=== PATIENT | male | born 1970 | race Caucasian/White ===

== ENCOUNTER → 2018-09-22 | Day surgery (SDC) | payer OTHER ==
[~2018-09-22] VITALS: Ht 167.6 cm; Wt 56.7 kg
[~2018-09-22] MED LIST: ASPIRIN81 M1 PO; CLARITIN10 MG PO; MEDROL DOSEPAK4 MG PO; SUNMARK OMEPRAZ20 M1 PO; VICODIN 500 MG-1 TAB PO; ZITHROMAX Z PA250 MG PO
--- NOTE | ~2018-09-22 | O ---
[place], [place] OPERATIVE NOTE NAME: CECY UNGER JR UNIT #: [id number] ROOM: DOCTOR: NU PEDERSEN MD BIRTHDATE: [birth year] DOS: GASTROENDOSCOPIC REPORT: HISTORY: This a 47-year-old patient who was presented with chief complaint of epigastric abdominal pain, dyspepsia, diarrhea, change in bowel habits, rectal bleed. The patient with aggressive alcohol and nicotine dependency, 6 pack beer daily and 2 packs of cigarette smoking daily. ALLERGIES: PENICILLIN AND ALEVE. FAMILY HISTORY: Colonic carcinoma in grandmother and cousins. PAST SURGICAL HISTORY: Left leg hernia repair. PAST MEDICAL HISTORY: Anxiety, depression. PROCEDURE: Today's procedure part of investigation is panendoscopy and colonoscopy. PREMEDICATION: Propofol. SCOPE: Olympus forward-viewing gastroscope Q10 video. REPORT: After putting the patient in left lateral position and application of lubricant to the scope, scope was introduced. Thereafter, under direct visualization, advanced through the length of esophagus without difficulty. Esophagus, cervical, thoracic distal carefully examining, hiatal hernia was noticed. Gastritis was seen. Duodenal bulb, second and third part within normal limit. Antrum was biopsied. Duodenal bulb, second and third part consistent with mild duodenitis. Antral biopsy obtained, 3 cm hiatal hernia was photographed. Air was suctioned out. The patient was extubated, tolerated the procedure well. IMPRESSION: Gastritis, hiatal hernia, duodenitis. PLAN AND DISCUSSION: I am going to keep this patient on Protonix 20 mg every day. The patient advised to abstain from chewing tobacco, alcohol consumption. I am going to keep him on antireflux with elevation of the head of the bed 6 inch all time. We are going to proceed with colonoscopy. HISTORY: The patient has presented with change in bowel habit, undergoing investigation. PROCEDURE: Today's procedure part of investigation is colonoscopy. PREMEDICATION: Propofol. SCOPE: Olympus forward-viewing colonoscope 10L video. [place], [place] OPERATIVE NOTE NAME: CECY UNGER JR UNIT #: [id number] ROOM: DOCTOR: NU PEDERSEN MD BIRTHDATE: [birth year] REPORT: After putting the patient in left lateral position and application of lubricant to the scope, the scope was introduced. Thereafter, under direct visualization, advanced through the length of colon without difficulty. Base of the cecum explored, appendiceal orifice identified, ileocecal valve was defined and photographed. Large volume liquid stool in the colon was noticed as much as possible suctioned out. The patient was extubated, tolerated the procedure well. IMPRESSION: Normal colonoscopic examination. Plan was advised to have high fiber fruit diet. ACTIVITY: Ad delmy to stop aggressive alcohol and nicotine consumption. Thank you very much indeed. NU PEDERSEN MD CM:OPRECORD:OPERATIVE NOTE [id number] NU PEDERSEN MD 09/22/18 1103 interface
[2018-09-22 09:15] VITALS: BP 149/94
[2018-09-22 10:43] VITALS: BP 100/69
[2018-09-22 10:55] VITALS: BP 127/81
[2018-09-22 11:18] VITALS: BP 121/79
== END | disposition home or self-care (01) ==
LOC: SDC 09-17 08:00
DX: K62.5 Hemorrhage of anus and rectum (principal); R19.7 Diarrhea, unspecified; K29.50 Unspecified chronic gastritis without bleeding; K29.80 Duodenitis without bleeding; K44.9 Diaphragmatic hernia without obstruction or gangrene; E78.5 Hyperlipidemia, unspecified; F17.210 Nicotine dependence, cigarettes, uncomplicated; F41.8 Other specified anxiety disorders; Z88.6 Allergy status to analgesic agent; Z88.0 Allergy status to penicillin; Z98.890 Other specified postprocedural states; Z80.0 Family history of malignant neoplasm of digestive organs

== ENCOUNTER → 2021-08-06 | Outpatient (CLI) | payer OTHER | END | disposition home or self-care (01) | LOC: RAD 11:12 | PROVIDERS: ATTEND Nurse Practitioner Family | DX: K62.5 Hemorrhage of anus and rectum (principal); F10.10 Alcohol abuse, uncomplicated; Z72.0 Tobacco use; Z80.0 Family history of malignant neoplasm of digestive organs ==

== ENCOUNTER → 2021-09-05 | Day surgery (SDC) | payer OTHER | END | disposition home or self-care (01) | LOC: SDC 09-02 08:00 | PROVIDERS: ATTEND Surgery | DX: Z01.818 Encounter for other preprocedural examination (principal); Z20.822 Contact with and (suspected) exposure to COVID-19 ==

== ENCOUNTER → 2021-09-23 | Day surgery (SDC) | payer OTHER ==
[~2021-09-23] VITALS: Ht 170.1 cm; Wt 56.7 kg
[2021-09-23 07:17] VITALS: BP 151/85
[2021-09-23 08:00] VITALS: BP 120/75
[2021-09-23 08:14] VITALS: BP 139/82
[2021-09-23 08:26] VITALS: BP 148/83
== END | disposition home or self-care (01) ==
LOC: SDC 09-09 12:30
PROVIDERS: ATTEND Surgery
DX: K62.5 Hemorrhage of anus and rectum (principal); K57.30 Diverticulosis of large intestine without perforation or abscess without bleeding; K64.8 Other hemorrhoids; K21.9 Gastro-esophageal reflux disease without esophagitis; F32.9 Major depressive disorder, single episode, unspecified; F41.9 Anxiety disorder, unspecified; F17.210 Nicotine dependence, cigarettes, uncomplicated; Z79.899 Other long term (current) drug therapy; Z20.822 Contact with and (suspected) exposure to COVID-19

== ENCOUNTER → 2021-11-07 | Outpatient (CLI) | payer OTHER | END | disposition home or self-care (01) | LOC: CT 01:42 | PROVIDERS: ATTEND Nurse Practitioner Family | DX: K02.9 Dental caries, unspecified (principal); F10.10 Alcohol abuse, uncomplicated; M27.2 Inflammatory conditions of jaws; K62.5 Hemorrhage of anus and rectum; R63.4 Abnormal weight loss; R91.8 Other nonspecific abnormal finding of lung field; Z80.0 Family history of malignant neoplasm of digestive organs ==

== ENCOUNTER → 2022-08-06 | Outpatient (CLI) | payer OTHER ==
[2022-08-06 18:08] LABS: BASO # 0.1 10*3/uL (0.0-0.1); BASO % 1.3 % (0.0-1.0); EOS # 0.2 10*3/uL (0.0-0.4); EOS % 3.3 % (1.0-4.0); HEMATOCRIT 42.2 % (42.0-52.0); LYMPH # 1.5 10*3/uL (1.3-4.4); LYMPH % 27.4 % (27.0-41.0); MEAN CELL VOLUME 91.1 fl (80.0-94.0); MEAN CORPUSCULAR HGB 31.1 pg (27.0-31.0); MEAN CORPUSCULAR HGB CONC 34.1 g/dl (33.0-37.0); MEAN PLATELET VOLUME 8.5 fl (9.6-12.3); MONO # 0.7 10*3/uL (0.1-1.0); MONO % 12.4 % (3.0-9.0); NEUT % 55.4 % (47.0-73.0); PLATELET COUNT AUTOMATED 284 10*3/uL (130-400); RED BLOOD COUNT 4.63 10*6/uL (4.50-5.90); RED CELL DISTRI WIDTH 14.3 % (0-14.5); WHITE BLOOD COUNT 5.4 10*3/uL (4.8-10.8)
[2022-08-06 18:28] LABS: ALKALINE PHOSPHATASE 75 U/L (45-117); BUN 8 mg/dl (7-24); CHLORIDE 104 mmol/L (98-107); CHOLESTEROL 191 mg/dL (<200); CREATININE 0.81 mg/dL (0.70-1.30); LDL CHOLESTEROL 58 mg/dL (9-159); POTASSIUM 4.1 mmol/L (3.5-5.1); SGOT/AST 29 IU/L (3-35); SGPT/ALT 21 U/L (12-78); SODIUM 132 mmol/L (136-145); TOTAL PROTEIN 7.5 gm/dL (6.4-8.2); TRIGLYCERIDES 70 mg/dl (<150)
== END | disposition home or self-care (01) ==
LOC: LAB 17:29
PROVIDERS: ATTEND Nurse Practitioner Family
DX: I10 Essential (primary) hypertension (principal); F10.10 Alcohol abuse, uncomplicated; Z72.0 Tobacco use

== ENCOUNTER → 2022-08-25 | Outpatient (CLI) | payer OTHER ==
[2022-08-25 12:22] LABS: BUN 5 mg/dl (7-24); CREATININE 0.66 mg/dL (0.70-1.30)
== END | disposition home or self-care (01) ==
LOC: LAB 11:43
PROVIDERS: Surgery Vascular Surgery; ATTEND Internal Medicine Endocrinology, Diabetes & Metabolism
DX: I71.40 Abdominal aortic aneurysm, without rupture, unspecified (principal)

== ENCOUNTER → 2022-08-26 | Outpatient (CLI) | payer OTHER | LOC: CT 01:50 | PROVIDERS: ATTEND Surgery Vascular Surgery | DX: I71.40 Abdominal aortic aneurysm, without rupture, unspecified (principal) ==

== ENCOUNTER → 2022-10-22 | Outpatient (CLI) | payer OTHER | END | disposition home or self-care (01) | LOC: CT 10:30 | PROVIDERS: ATTEND Internal Medicine Critical Care Medicine | DX: J43.9 Emphysema, unspecified (principal); J45.40 Moderate persistent asthma, uncomplicated; R91.1 Solitary pulmonary nodule; Z87.891 Personal history of nicotine dependence; Z68.1 Body mass index [BMI] 19.9 or less, adult ==

== ENCOUNTER → 2023-02-04 | Outpatient (CLI) | payer OTHER | END | disposition home or self-care (01) | LOC: CT 11:00 | PROVIDERS: ATTEND Internal Medicine Critical Care Medicine | DX: J43.8 Other emphysema (principal); J98.4 Other disorders of lung ==

== ENCOUNTER → 2023-03-18 | Outpatient (CLI) | payer OTHER ==
[2023-03-18 14:16] LABS: BASO # 0.1 10*3/uL (0.0-0.1); EOS # 0.2 10*3/uL (0.0-0.4); EOS % 3.8 % (1.0-4.0); HEMATOCRIT 45.8 % (42.0-52.0); LYMPH # 1.6 10*3/uL (1.3-4.4); LYMPH % 39.5 % (27.0-41.0); MEAN CELL VOLUME 90.7 fl (80.0-94.0); MEAN CORPUSCULAR HGB 32.1 pg (27.0-31.0); MEAN CORPUSCULAR HGB CONC 35.4 g/dl (33.0-37.0); MEAN PLATELET VOLUME 8.3 fl (9.6-12.3); MONO # 0.5 10*3/uL (0.1-1.0); MONO % 12.8 % (3.0-9.0); NEUT # 1.7 10*3/uL (2.3-7.9); NEUT % 41.6 % (47.0-73.0); PLATELET COUNT AUTOMATED 293 10*3/uL (130-400); RED BLOOD COUNT 5.05 10*6/uL (4.50-5.90); RED CELL DISTRI WIDTH 13.8 % (0-14.5)
[2023-03-18 14:42] LABS: ALKALINE PHOSPHATASE 70 U/L (46-116); CHLORIDE 101 mmol/L (98-107); CHOLESTEROL 193 mg/dL (<200); LDL CHOLESTEROL 69 mg/dL (9-159); POTASSIUM 3.8 mmol/L (3.4-5.1); SGPT/ALT 16 U/L (10-49); TOTAL PROTEIN 7.5 gm/dL (6.0-8.0); TRIGLYCERIDES 78 mg/dl (<150)
[2023-03-18 14:45] LABS: BUN < 5 mg/dl (9-23)
== END | disposition home or self-care (01) ==
LOC: LAB 14:02
PROVIDERS: ATTEND Nurse Practitioner Family
DX: I10 Essential (primary) hypertension (principal); F10.10 Alcohol abuse, uncomplicated; R79.89 Other specified abnormal findings of blood chemistry; D72.819 Decreased white blood cell count, unspecified; Z72.0 Tobacco use

== ENCOUNTER → 2023-04-28 | Outpatient (CLI) | payer OTHER ==
[2023-04-28 12:45] LABS: BASO # 0.1 10*3/uL (0.0-0.1); BASO % 1.5 % (0.0-1.0); EOS # 0.2 10*3/uL (0.0-0.4); EOS % 3.1 % (1.0-4.0); HEMATOCRIT 48.7 % (42.0-52.0); LYMPH # 1.2 10*3/uL (1.3-4.4); MEAN CELL VOLUME 91.5 fl (80.0-94.0); MEAN CORPUSCULAR HGB CONC 33.9 g/dl (33.0-37.0); MEAN PLATELET VOLUME 8.2 fl (9.6-12.3); MONO % 18.2 % (3.0-9.0); NEUT # 2.8 10*3/uL (2.3-7.9); PLATELET COUNT AUTOMATED 261 10*3/uL (130-400); RED BLOOD COUNT 5.32 10*6/uL (4.50-5.90); RED CELL DISTRI WIDTH 13.5 % (0-14.5); WHITE BLOOD COUNT 5.2 10*3/uL (4.8-10.8)
[2023-04-28 13:11] LABS: ALKALINE PHOSPHATASE 82 U/L (46-116); CHLORIDE 102 mmol/L (98-107); POTASSIUM 4.6 mmol/L (3.4-5.1); SGPT/ALT 18 U/L (10-49); TOTAL PROTEIN 7.7 gm/dL (6.0-8.0)
[2023-04-28 13:14] LABS: BUN < 5 mg/dl (9-23)
== END | disposition home or self-care (01) ==
LOC: LAB 12:29
PROVIDERS: ATTEND Nurse Practitioner Family
DX: L03.115 Cellulitis of right lower limb (principal); H92.03 Otalgia, bilateral; H61.23 Impacted cerumen, bilateral; R63.4 Abnormal weight loss

== ENCOUNTER → 2023-10-13 | Outpatient (CLI) | payer OTHER | END | disposition home or self-care (01) | LOC: CT 13:25 | PROVIDERS: ATTEND Specialist | DX: J34.2 Deviated nasal septum (principal); J32.9 Chronic sinusitis, unspecified; J31.2 Chronic pharyngitis; R51.9 Headache, unspecified ==

== ENCOUNTER → 2023-11-04 | Outpatient (CLI) | payer OTHER ==
[2023-11-04 17:16] LABS: BASO # 0.1 10*3/uL (0.0-0.1); BASO % 1.4 % (0.0-1.0); EOS # 0.4 10*3/uL (0.0-0.4); EOS % 4.8 % (1.0-4.0); HEMATOCRIT 45.7 % (42.0-52.0); LYMPH # 1.8 10*3/uL (1.3-4.4); LYMPH % 23.3 % (27.0-41.0); MEAN CELL VOLUME 91.2 fl (80.0-94.0); MEAN CORPUSCULAR HGB 29.7 pg (27.0-31.0); MEAN CORPUSCULAR HGB CONC 32.6 g/dl (33.0-37.0); MEAN PLATELET VOLUME 8.1 fl (9.6-12.3); MONO # 0.9 10*3/uL (0.1-1.0); NEUT # 4.4 10*3/uL (2.3-7.9); NEUT % 58.2 % (47.0-73.0); PLATELET COUNT AUTOMATED 341 10*3/uL (130-400); RED BLOOD COUNT 5.01 10*6/uL (4.50-5.90); RED CELL DISTRI WIDTH 13.2 % (0-14.5); WHITE BLOOD COUNT 7.6 10*3/uL (4.8-10.8)
[2023-11-04 17:45] LABS: ALKALINE PHOSPHATASE 89 U/L (46-116); BUN 10 mg/dl (9-23); CHLORIDE 103 mmol/L (98-107); CHOLESTEROL 181 mg/dL (<200); LDL CHOLESTEROL 99 mg/dL (9-159); POTASSIUM 3.9 mmol/L (3.4-5.1); SGPT/ALT 11 U/L (5-49); TOTAL PROTEIN 7.2 gm/dL (6.0-8.0); TRIGLYCERIDES 137 mg/dl (<150)
== END | disposition home or self-care (01) ==
LOC: LAB 16:54
PROVIDERS: ATTEND Nurse Practitioner Family
DX: R79.89 Other specified abnormal findings of blood chemistry (principal); I10 Essential (primary) hypertension; F10.10 Alcohol abuse, uncomplicated; Z72.0 Tobacco use

== ENCOUNTER 2023-12-16 11:14 | Emergency (ER) | payer OTHER ==
[~2023-12-16] VITALS: Ht 165.1 cm; Wt 53.5 kg
[2023-12-16] MEDS ORDERED: CEPHALEXIN500 M1 PO (13:26)
[2023-12-17] MEDS ORDERED: LISINOPRIL10 M1 PO (10:47)
[2023-12-17] MEDS ORDERED: WELLBUTRIN SR150 MG PO (10:48)
[2023-12-17] MEDS ORDERED: SYMB160 INH (10:49)
[2023-12-17] MEDS ORDERED: VENT7GM INH (10:49)
== END 2023-12-16 13:33 | disposition home or self-care (01) ==
LOC: ED 11:14
DX: S01.511A Laceration without foreign body of lip, initial encounter (principal); Z88.0 Allergy status to penicillin; Z88.6 Allergy status to analgesic agent; Z98.890 Other specified postprocedural states; Z87.891 Personal history of nicotine dependence; W22.8XXA Striking against or struck by other objects, initial encounter; Y93.89 Activity, other specified; Y92.89 Other specified places as the place of occurrence of the external cause; Y99.8 Other external cause status

== ENCOUNTER 2023-12-31 01:27 | Emergency (ER) | payer OTHER ==
[~2023-12-31] VITALS: Ht 162.5 cm; Wt 54.4 kg
[~2023-12-31 01:27] MED LIST changes: +CEPHALEXIN500 M1 PO; +LISINOPRIL10 M1 PO; +SYMB160 INH; +VENT7GM INH; +WELLBUTRIN SR150 MG PO
[2023-12-31 01:30] VITALS: BP 163/101
[2023-12-31] MEDS ORDERED: Albuterol Sulf/Ipratropium 3 ML VIAL NEB ONE ×2 (01:35→05:25)
[2023-12-31] MEDS ORDERED: methylPREDNISolone sod succ 125 MG VIAL IV ONE (01:35)
[2023-12-31 01:54] LABS: HEMATOCRIT 47.9 % (42.0-52.0); MEAN CELL VOLUME 84.9 fl (80.0-94.0); MEAN CORPUSCULAR HGB 27.7 pg (27.0-31.0); MEAN CORPUSCULAR HGB CONC 32.6 g/dl (33.0-37.0); PLATELET COUNT AUTOMATED 377 10*3/uL (130-400); RED BLOOD COUNT 5.64 10*6/uL (4.50-5.90); RED CELL DISTRI WIDTH 12.6 % (0-14.5); WHITE BLOOD COUNT 10.6 10*3/uL (4.8-10.8)
[2023-12-31 01:57] LABS: MANUAL DIFF REFLEX YES
[2023-12-31 02:11] LABS: ALKALINE PHOSPHATASE 119 U/L (46-116); CHLORIDE 83 mmol/L (98-107); POTASSIUM 4.4 mmol/L (3.4-5.1); SGPT/ALT 24 U/L (5-49); TOTAL PROTEIN 7.3 gm/dL (6.0-8.0)
[2023-12-31 02:17] LABS: BUN < 5 mg/dl (9-23)
[2023-12-31] MEDS ORDERED: SODIUM CHLORIDE 0.9% 1,000 ML IV ONE (02:25)
[2023-12-31 02:32] LABS: PLATELET SUFFICIENCY NORMAL (NORMAL); TOTAL CELLS COUNTED 100 #CELLS
[2023-12-31 02:37] VITALS: BP 184/101
[2023-12-31 03:14] VITALS: BP 185/104
[2023-12-31] MEDS ORDERED: TEMAZEPAM 15 MG CAP PO PRN (03:30)
[2023-12-31] MEDS ORDERED: Magnesium Hydroxide 30 ML UDC PO PRN (03:30)
[2023-12-31] MEDS ORDERED: ACETAMINOPHEN 650 MG SUPP R PRN (03:30)
[2023-12-31] MEDS ORDERED: BISACODYL 5 MG TAB PO PRN (03:30)
[2023-12-31] MEDS ORDERED: ACETAMINOPHEN 325 MG TAB PO PRN (03:30)
[2023-12-31 03:59] LABS: BILIRUBIN Negative (Negative); BLOOD Trace-Lysed (Negative); CLARITY Clear (Clear); COLOR Yellow (Yellow); GLUCOSE Negative (Negative); KETONE Negative (Negative); LEUKO ESTERASE Negative (Negative); NITRITE Negative (Negative); SPECIFIC GRAVITY <= 1.005 (1.001-1.030)
[2023-12-31 04:04] LABS: URINE AMPHETAMINES Negative (1000ng/ml); URINE BARBITURATES Negative (200ng/ml); URINE BENZODIAZEPINES Negative (200ng/ml); URINE CANNABINOIDS (THC) Negative (50ng/ml); URINE COCAINE Negative (300ng/ml); URINE METHADONE Negative (300ng/ml); URINE OPIATES Negative (300ng/ml); URINE PHENCYCLIDINE Negative (25ng/ml)
[2023-12-31 04:25] LABS: WBC 0-2 wbc/hpf (0-5)
[2023-12-31 04:37] VITALS: BP 148/106
[2023-12-31 06:55] VITALS: BP 171/102
[2023-12-31 07:15] VITALS: BP 170/100
[2023-12-31] MEDS ORDERED: Enoxaparin Sodium 40 MG/0.4 ML SYR SC SCH (10:00)
== END 2023-12-31 05:27 | disposition admitted as inpatient to this hospital (09) ==
LOC: ED 01:27 → EDHOLD 02:54 → ED 05:27
PROVIDERS: Internal Medicine; Student in an Organized Health Care Education/Training Program
DX: E87.1 Hypo-osmolality and hyponatremia (principal); J44.1 Chronic obstructive pulmonary disease with (acute) exacerbation; R74.01 Elevation of levels of liver transaminase levels; R63.4 Abnormal weight loss; Z88.0 Allergy status to penicillin; Z88.8 Allergy status to other drugs, medicaments and biological substances; Z79.2 Long term (current) use of antibiotics; Z79.899 Other long term (current) drug therapy; Z98.890 Other specified postprocedural states

== ENCOUNTER 2024-01-08 17:45 | Emergency (ER) | payer OTHER ==
[~2024-01-08] VITALS: Ht 167.6 cm; Wt 54.4 kg
[2024-01-08] MEDS ORDERED: SODIUM CHLORIDE 0.9% 1,000 ML IV ONE (17:55)
[2024-01-08] MEDS ORDERED: TRANEXAMIC ACID IN NACL,ISO-OS 100 ML IV ONE (18:00)
[2024-01-08 18:08] LABS: BASO # 0.1 10*3/uL (0.0-0.1); BASO % 0.5 % (0.0-1.0); EOS # 0.1 10*3/uL (0.0-0.4); EOS % 1.3 % (1.0-4.0); HEMATOCRIT 43.6 % (42.0-52.0); LYMPH # 0.8 10*3/uL (1.3-4.4); LYMPH % 8.7 % (27.0-41.0); MEAN CELL VOLUME 88.1 fl (80.0-94.0); MEAN CORPUSCULAR HGB 27.7 pg (27.0-31.0); MEAN CORPUSCULAR HGB CONC 31.4 g/dl (33.0-37.0); MEAN PLATELET VOLUME 8.7 fl (9.6-12.3); MONO % 10.3 % (3.0-9.0); NEUT # 7.4 10*3/uL (2.3-7.9); NEUT % 78.9 % (47.0-73.0); PLATELET COUNT AUTOMATED 453 10*3/uL (130-400); RED BLOOD COUNT 4.95 10*6/uL (4.50-5.90); RED CELL DISTRI WIDTH 13.5 % (0-14.5); WHITE BLOOD COUNT 9.4 10*3/uL (4.8-10.8)
[2024-01-08 18:20] LABS: ACT PARTIAL THROMBO TIME 28.8 SECONDS (20.0-32.1)
[2024-01-08] MEDS ORDERED: IOHEXOL 350 MG/ML 100 ML VIAL IV ONE (18:20)
[2024-01-08] MEDS ORDERED: SODIUM CHLORIDE 0.9% 100 ML BAG IV ONE (18:20)
[2024-01-08 18:32] LABS: ALKALINE PHOSPHATASE 66 U/L (46-116); BUN 8 mg/dl (9-23); CHLORIDE 97 mmol/L (98-107); POTASSIUM 3.7 mmol/L (3.4-5.1); SGPT/ALT 16 U/L (5-49); TOTAL PROTEIN 6.9 gm/dL (6.0-8.0)
== END 2024-01-08 21:27 | disposition short-term general hospital (02) ==
LOC: ED 17:45
PROVIDERS: Emergency Medicine
DX: J95.01 Hemorrhage from tracheostomy stoma (principal); R00.0 Tachycardia, unspecified; I10 Essential (primary) hypertension; E78.5 Hyperlipidemia, unspecified; J44.9 Chronic obstructive pulmonary disease, unspecified; K21.9 Gastro-esophageal reflux disease without esophagitis; R10.2 Pelvic and perineal pain; F17.200 Nicotine dependence, unspecified, uncomplicated; F12.90 Cannabis use, unspecified, uncomplicated; Z88.0 Allergy status to penicillin; Z88.6 Allergy status to analgesic agent; Z98.890 Other specified postprocedural states

== ENCOUNTER → 2024-03-04 | Outpatient (CLI) | payer OTHER ==
[2024-03-04 10:11] LABS: HEMATOCRIT 37.4 % (42.0-52.0); MEAN CELL VOLUME 93.3 fl (80.0-94.0); MEAN CORPUSCULAR HGB 29.2 pg (27.0-31.0); MEAN CORPUSCULAR HGB CONC 31.3 g/dl (33.0-37.0); MEAN PLATELET VOLUME 8.8 fl (9.6-12.3); PLATELET COUNT AUTOMATED 340 10*3/uL (130-400); RED BLOOD COUNT 4.01 10*6/uL (4.50-5.90); RED CELL DISTRI WIDTH 17.1 % (0-14.5); WHITE BLOOD COUNT 6.6 10*3/uL (4.8-10.8)
[2024-03-04 10:19] LABS: MANUAL DIFF REFLEX YES
[2024-03-04 11:01] LABS: BASOPHILS 1 % (0-1); PLATELET SUFFICIENCY NORMAL (NORMAL); TOTAL CELLS COUNTED 100 #CELLS
[2024-03-04 11:13] LABS: ALKALINE PHOSPHATASE 102 U/L (46-116); BUN 11 mg/dl (9-23); CHLORIDE 104 mmol/L (98-107); CHOLESTEROL 190 mg/dL (<200); LDL CHOLESTEROL 93 mg/dL (9-159); SGPT/ALT 41 U/L (5-49); TOTAL PROTEIN 7.2 gm/dL (6.0-8.0); TRIGLYCERIDES 107 mg/dl (<150)
== END ==
LOC: LAB 09:51
PROVIDERS: ATTEND Nurse Practitioner Family
DX: J38.7 Other diseases of larynx (principal); R63.4 Abnormal weight loss; E03.9 Hypothyroidism, unspecified; Z87.891 Personal history of nicotine dependence; Z87.898 Personal history of other specified conditions; Z93.0 Tracheostomy status; Z93.1 Gastrostomy status

== ENCOUNTER → 2024-03-18 | Outpatient (CLI) | payer OTHER | END | disposition home or self-care (01) | LOC: CT 02-22 10:00 | PROVIDERS: ATTEND Internal Medicine Critical Care Medicine | DX: Z12.2 Encounter for screening for malignant neoplasm of respiratory organs (principal); J43.9 Emphysema, unspecified; R91.8 Other nonspecific abnormal finding of lung field; J45.40 Moderate persistent asthma, uncomplicated; J44.9 Chronic obstructive pulmonary disease, unspecified; Z87.891 Personal history of nicotine dependence; Z93.1 Gastrostomy status; Z68.1 Body mass index [BMI] 19.9 or less, adult; Z98.890 Other specified postprocedural states ==

== ENCOUNTER → 2024-04-14 | Outpatient (CLI) | payer OTHER ==
[2024-04-14 12:49] LABS: FREE T4 1.35 ng/dl (0.89-1.76); THYROXINE (T4) TOTAL 6.5 ug/dl (4.5-10.9)
== END | disposition home or self-care (01) ==
LOC: LAB 11:31
PROVIDERS: ATTEND Internal Medicine Endocrinology, Diabetes & Metabolism
DX: E03.9 Hypothyroidism, unspecified (principal)

== ENCOUNTER → 2024-06-22 | Outpatient (CLI) | payer OTHER ==
[2024-06-22 11:45] LABS: BASO # 0.1 10*3/uL (0.0-0.1); BASO % 1.7 % (0.0-1.0); EOS # 0.7 10*3/uL (0.0-0.4); EOS % 15.1 % (1.0-4.0); HEMATOCRIT 44.4 % (42.0-52.0); LYMPH # 0.4 10*3/uL (1.3-4.4); LYMPH % 7.3 % (27.0-41.0); MEAN CELL VOLUME 93.3 fl (80.0-94.0); MEAN CORPUSCULAR HGB 29.8 pg (27.0-31.0); MEAN PLATELET VOLUME 8.4 fl (9.6-12.3); MONO # 0.6 10*3/uL (0.1-1.0); MONO % 13.4 % (3.0-9.0); NEUT # 2.9 10*3/uL (2.3-7.9); NEUT % 60.8 % (47.0-73.0); PLATELET COUNT AUTOMATED 486 10*3/uL (130-400); RED BLOOD COUNT 4.76 10*6/uL (4.50-5.90); RED CELL DISTRI WIDTH 15.4 % (0-14.5); WHITE BLOOD COUNT 4.8 10*3/uL (4.8-10.8)
[2024-06-22 12:08] LABS: ALKALINE PHOSPHATASE 138 U/L (46-116); CHLORIDE 103 mmol/L (98-107); CHOLESTEROL 156 mg/dL (<200); LDL CHOLESTEROL 70 mg/dL (9-159); POTASSIUM 4.3 mmol/L (3.4-5.1); SGPT/ALT 9 U/L (5-49); TOTAL PROTEIN 7.1 gm/dL (6.0-8.0); TRIGLYCERIDES 82 mg/dl (<150)
[2024-06-22 12:10] LABS: BUN < 5 mg/dl (9-23)
== END | disposition home or self-care (01) ==
LOC: LAB 10:50
PROVIDERS: ATTEND Nurse Practitioner Family
DX: I10 Essential (primary) hypertension (principal); Z72.0 Tobacco use

== ENCOUNTER → 2024-08-03 | Outpatient (CLI) | payer OTHER ==
[2024-08-03 12:28] LABS: FREE T4 1.28 ng/dl (0.89-1.76)
== END | disposition home or self-care (01) ==
LOC: LAB 11:36
PROVIDERS: ATTEND Internal Medicine Endocrinology, Diabetes & Metabolism
DX: E03.9 Hypothyroidism, unspecified (principal)

== ENCOUNTER → 2024-10-10 | Outpatient (CLI) | payer OTHER ==
[2024-10-10 15:10] LABS: BASO # 0.1 10*3/uL (0.0-0.1); BASO % 1.5 % (0.0-1.0); EOS # 0.1 10*3/uL (0.0-0.4); EOS % 2.5 % (1.0-4.0); HEMATOCRIT 40.5 % (42.0-52.0); MEAN CELL VOLUME 90.8 fl (80.0-94.0); MEAN CORPUSCULAR HGB 30.5 pg (27.0-31.0); MEAN CORPUSCULAR HGB CONC 33.6 g/dl (33.0-37.0); MEAN PLATELET VOLUME 8.5 fl (9.6-12.3); MONO # 0.6 10*3/uL (0.1-1.0); MONO % 14.3 % (3.0-9.0); NEUT # 2.8 10*3/uL (2.3-7.9); NEUT % 68.2 % (47.0-73.0); PLATELET COUNT AUTOMATED 274 10*3/uL (130-400); RED BLOOD COUNT 4.46 10*6/uL (4.50-5.90); RED CELL DISTRI WIDTH 15.1 % (0-14.5); WHITE BLOOD COUNT 4.1 10*3/uL (4.8-10.8)
[2024-10-10 15:37] LABS: ALKALINE PHOSPHATASE 83 U/L (46-116); BUN 6 mg/dl (9-23); CHLORIDE 103 mmol/L (98-107); CHOLESTEROL 207 mg/dL (<200); LDL CHOLESTEROL 52 mg/dL (9-159); SGPT/ALT 18 U/L (5-49); TOTAL PROTEIN 7.2 gm/dL (6.0-8.0); TRIGLYCERIDES 121 mg/dl (<150)
== END | disposition home or self-care (01) ==
LOC: LAB 14:48
PROVIDERS: ATTEND Nurse Practitioner Family
DX: I10 Essential (primary) hypertension (principal); K21.9 Gastro-esophageal reflux disease without esophagitis; F10.10 Alcohol abuse, uncomplicated

== ENCOUNTER → 2025-01-09 | Outpatient (CLI) | payer OTHER ==
[2025-01-09 15:32] LABS: BASO # 0.1 10*3/uL (0.0-0.1); BASO % 1.3 % (0.0-1.0); EOS # 0.1 10*3/uL (0.0-0.4); EOS % 1.3 % (1.0-4.0); HEMATOCRIT 46.5 % (42.0-52.0); MEAN CELL VOLUME 90.3 fl (80.0-94.0); MEAN CORPUSCULAR HGB 29.5 pg (27.0-31.0); MEAN CORPUSCULAR HGB CONC 32.7 g/dl (33.0-37.0); MEAN PLATELET VOLUME 8.1 fl (9.6-12.3); MONO # 0.5 10*3/uL (0.1-1.0); MONO % 9.3 % (3.0-9.0); NEUT # 4.1 10*3/uL (2.3-7.9); NEUT % 75.6 % (47.0-73.0); PLATELET COUNT AUTOMATED 367 10*3/uL (130-400); RED BLOOD COUNT 5.15 10*6/uL (4.50-5.90); RED CELL DISTRI WIDTH 14.8 % (0-14.5); WHITE BLOOD COUNT 5.5 10*3/uL (4.8-10.8)
[2025-01-09 16:15] LABS: ALKALINE PHOSPHATASE 135 U/L (46-116); CHLORIDE 98 mmol/L (98-107); CHOLESTEROL 189 mg/dL (<200); LDL CHOLESTEROL 49 mg/dL (9-159); POTASSIUM 4.9 mmol/L (3.4-5.1); SGPT/ALT 15 U/L (5-49); TOTAL PROTEIN 7.8 gm/dL (6.0-8.0); TRIGLYCERIDES 46 mg/dl (<150)
[2025-01-09 16:22] LABS: BUN < 5 mg/dl (9-23)
== END | disposition home or self-care (01) ==
LOC: LAB 15:09
PROVIDERS: ATTEND Nurse Practitioner Family
DX: I10 Essential (primary) hypertension (principal); E78.00 Pure hypercholesterolemia, unspecified; E03.9 Hypothyroidism, unspecified; Z76.89 Persons encountering health services in other specified circumstances

== ENCOUNTER 2025-03-12 03:03 | Emergency (ER) | payer OTHER ==
[2025-03-12] MEDS ORDERED: Acetaminophen/Oxycodone 5 MG/325 MG TABLET PO ONE (03:50)
[2025-03-12 04:13] LABS: BASO # 0.1 10*3/uL (0.0-0.1); BASO % 0.8 % (0.0-1.0); EOS % 0.2 % (1.0-4.0); HEMATOCRIT 38.4 % (42.0-52.0); MEAN CELL VOLUME 85.9 fl (80.0-94.0); MEAN CORPUSCULAR HGB 29.3 pg (27.0-31.0); MEAN CORPUSCULAR HGB CONC 34.1 g/dl (33.0-37.0); MEAN PLATELET VOLUME 8.4 fl (9.6-12.3); MONO # 0.6 10*3/uL (0.1-1.0); MONO % 6.9 % (3.0-9.0); NEUT # 7.6 10*3/uL (2.3-7.9); NEUT % 87.8 % (47.0-73.0); PLATELET COUNT AUTOMATED 266 10*3/uL (130-400); RED BLOOD COUNT 4.47 10*6/uL (4.50-5.90); RED CELL DISTRI WIDTH 15.1 % (0-14.5); WHITE BLOOD COUNT 8.7 10*3/uL (4.8-10.8)
[2025-03-12 04:35] LABS: BUN 5 mg/dl (9-23); CHLORIDE 98 mmol/L (98-107); POTASSIUM 4.2 mmol/L (3.4-5.1)
[2025-03-12] MEDS ORDERED: PERCOCET 5-3251 EACH PO (04:46)
[2025-03-12] MEDS ORDERED: SODIUM CHLORIDE 0.9% 1,000 ML IV ONE (05:10)
== END 2025-03-12 06:19 | disposition home or self-care (01) ==
LOC: ED 03:03
PROVIDERS: Internal Medicine
DX: S92.344A Nondisplaced fracture of fourth metatarsal bone, right foot, initial encounter for closed fracture (principal); S92.024A Nondisplaced fracture of anterior process of right calcaneus, initial encounter for closed fracture; F17.200 Nicotine dependence, unspecified, uncomplicated; Z88.0 Allergy status to penicillin; Z88.8 Allergy status to other drugs, medicaments and biological substances; Z79.899 Other long term (current) drug therapy; Z98.890 Other specified postprocedural states; W18.42XA Slipping, tripping and stumbling without falling due to stepping into hole or opening, initial encounter; Y93.89 Activity, other specified; Y92.89 Other specified places as the place of occurrence of the external cause; Y99.8 Other external cause status

== ENCOUNTER → 2025-03-17 | Outpatient (CLI) | payer OTHER ==
[~2025-03-17] MED LIST changes: +PERCOCET 5-3251 EACH PO
== END | disposition home or self-care (01) ==
LOC: CT 13:51
PROVIDERS: ATTEND Orthopaedic Surgery
DX: S92.061A Displaced intraarticular fracture of right calcaneus, initial encounter for closed fracture (principal); X58.XXXA Exposure to other specified factors, initial encounter; Y93.89 Activity, other specified; Y92.89 Other specified places as the place of occurrence of the external cause; Y99.8 Other external cause status

== ENCOUNTER → 2025-03-27 | Outpatient (CLI) | payer OTHER | END | disposition home or self-care (01) | LOC: ORTHO 01:53 | PROVIDERS: ATTEND Orthopaedic Surgery | DX: S92.061D Displaced intraarticular fracture of right calcaneus, subsequent encounter for fracture with routine healing (principal); S92.341D Displaced fracture of fourth metatarsal bone, right foot, subsequent encounter for fracture with routine healing; S92.351D Displaced fracture of fifth metatarsal bone, right foot, subsequent encounter for fracture with routine healing; X58.XXXD Exposure to other specified factors, subsequent encounter ==

== ENCOUNTER → 2025-04-10 | Outpatient (CLI) | payer OTHER | END | disposition home or self-care (01) | LOC: ORTHO 00:46 | PROVIDERS: ATTEND Orthopaedic Surgery | DX: S92.001D Unspecified fracture of right calcaneus, subsequent encounter for fracture with routine healing (principal); S92.061D Displaced intraarticular fracture of right calcaneus, subsequent encounter for fracture with routine healing; S92.341A Displaced fracture of fourth metatarsal bone, right foot, initial encounter for closed fracture; M79.89 Other specified soft tissue disorders; X58.XXXD Exposure to other specified factors, subsequent encounter; X58.XXXA Exposure to other specified factors, initial encounter; Y93.89 Activity, other specified; Y92.89 Other specified places as the place of occurrence of the external cause; Y99.8 Other external cause status ==

== ENCOUNTER → 2025-04-19 | Outpatient (CLI) | payer OTHER ==
[2025-04-19 16:52] LABS: BASO # 0.1 10*3/uL (0.0-0.1); BASO % 1.9 % (0.0-1.0); EOS # 0.2 10*3/uL (0.0-0.4); EOS % 3.9 % (1.0-4.0); HEMATOCRIT 42.3 % (42.0-52.0); MEAN CELL VOLUME 94.2 fl (80.0-94.0); MEAN CORPUSCULAR HGB 30.1 pg (27.0-31.0); MEAN CORPUSCULAR HGB CONC 31.9 g/dl (33.0-37.0); MEAN PLATELET VOLUME 8.7 fl (9.6-12.3); MONO # 0.5 10*3/uL (0.1-1.0); MONO % 9.7 % (3.0-9.0); NEUT # 3.6 10*3/uL (2.3-7.9); NEUT % 70.3 % (47.0-73.0); PLATELET COUNT AUTOMATED 397 10*3/uL (130-400); RED BLOOD COUNT 4.49 10*6/uL (4.50-5.90); WHITE BLOOD COUNT 5.1 10*3/uL (4.8-10.8)
[2025-04-19 17:07] LABS: ALKALINE PHOSPHATASE 131 U/L (46-116); BUN 6 mg/dl (9-23); CHLORIDE 98 mmol/L (98-107); CHOLESTEROL 170 mg/dL (<200); LDL CHOLESTEROL 47 mg/dL (9-159); POTASSIUM 4.9 mmol/L (3.4-5.1); SGPT/ALT 19 U/L (5-49); TOTAL PROTEIN 7.3 gm/dL (6.0-8.0); TRIGLYCERIDES 134 mg/dl (<150)
[2025-04-19 17:09] LABS: VITAMIN D, 25-HYDROXY 23.6 ng/mL (30-100)
== END | disposition home or self-care (01) ==
LOC: RHCWE 10:35
PROVIDERS: ATTEND Nurse Practitioner Family
DX: I10 Essential (primary) hypertension (principal); E03.9 Hypothyroidism, unspecified; K21.9 Gastro-esophageal reflux disease without esophagitis; E78.00 Pure hypercholesterolemia, unspecified; R73.01 Impaired fasting glucose; R91.1 Solitary pulmonary nodule; R79.89 Other specified abnormal findings of blood chemistry; R63.4 Abnormal weight loss; F10.10 Alcohol abuse, uncomplicated; Z72.0 Tobacco use

== ENCOUNTER → 2025-09-27 | Outpatient (CLI) | payer OTHER ==
[2025-09-27 12:20] LABS: BASO # 0.1 10*3/uL (0.0-0.1); BASO % 3.2 % (0.0-1.0); EOS # 0.1 10*3/uL (0.0-0.4); EOS % 3.2 % (1.0-4.0); MEAN CELL VOLUME 94.7 fl (80.0-94.0); MEAN CORPUSCULAR HGB 30.7 pg (27.0-31.0); MEAN PLATELET VOLUME 8.7 fl (9.6-12.3); MONO # 0.5 10*3/uL (0.1-1.0); MONO % 16.5 % (3.0-9.0); NEUT # 1.5 10*3/uL (2.3-7.9); NEUT % 51.4 % (47.0-73.0); NUCLEATED RED BLOOD CELL 0.0 % (0.0-0.0); NUCLEATED RED BLOOD CELL 0.0 10*3/uL (0.0-0.0); PLATELET COUNT AUTOMATED 400 10*3/uL (130-400); RED CELL DISTRI WIDTH 14.4 % (0-14.5)
[2025-09-27 12:38] LABS: LDL CHOLESTEROL 68 mg/dL (9-159); SGPT/ALT 24 U/L (5-49)
[2025-09-27 12:50] LABS: BUN < 5 mg/dl (9-23)
[2025-09-27 13:07] LABS: FREE T4 1.31 ng/dl (0.89-1.76)
== END | disposition home or self-care (01) ==
LOC: LAB 11:04
PROVIDERS: ATTEND Nurse Practitioner Family
DX: I10 Essential (primary) hypertension (principal); E78.00 Pure hypercholesterolemia, unspecified; E03.9 Hypothyroidism, unspecified; F10.10 Alcohol abuse, uncomplicated; R91.1 Solitary pulmonary nodule; R73.01 Impaired fasting glucose